=== PATIENT | female | born 1990 | race African-American/Black ===

== ENCOUNTER 2016-05-29 14:50 | Inpatient (IN) | payer MEDICAID ==
[2016-05-29] VITALS (7 sets, daily range): BP systolic 125–151; BP diastolic 71–82; PULSE 85–107; RESP 16–18; TEMP 97.8–98.8; O2SAT 95
[2016-05-29] MEDS ORDERED: CALNTAB (15:58)
[2016-05-29] MEDS ORDERED: SODIUM CHLORIDE 0.9% FLUSH 5 ML FLUSH IVF PRN (16:15)
[2016-05-29] MEDS ORDERED: BETAMETHASONE SOD PHOS/ACETATE SUSP 30 MG/5 ML VIAL IM SCH (16:15)
[2016-05-29] MEDS ORDERED: LACTATED RINGER'S 1000 ML INJ 1,000 ML IV SCH (16:15)
[2016-05-29] MEDS ORDERED: ONDANSETRON HCL 4 MG/2 ML VIAL IV PRN (16:15)
[2016-05-29] MEDS ORDERED: PENICILLIN G POTASSIUM INJ 5,000,000 UNITS in SODIUM CHLORIDE 0.9% INJ 100 ML IV ONE (16:15)
[2016-05-29] MEDS ORDERED: LACTATED RINGER'S 1000 ML INJ 500 ML IV ONE (16:20)
[2016-05-29] MEDS ORDERED: MAGNESIUM SULFATE 40 GM PREMIX 1,000 ML IV SCH (16:20)
[2016-05-29] MEDS ORDERED: MAGNESIUM SULFATE 4 GM PREMIX 100 ML IV ONE (16:30)
--- NOTE | 2016-05-29 16:48 | PD ---
HPI Chief Complaint spotting Date Seen: May 29, 2016 Travel History International Travel<30 Days: No Contact w/Intl Traveler<30Days: No Known Affected Area: No History of Present Illness HPI 26 yo with unsure FLAKO. Patient with no care. She had a visit at a crisis center in [place] and by a LMP FLAKO is 10-10-2016. This would make her about 20w6d today. Patient presents today with c/o spotting/light bleeding since yesterday. She had intercourse yesterday. She continued to have light bleeding overnight and this morning. By this afternoon she came to be evaluated. +FM. Denied LOF or discharge. No urinary complaints. No contractions or abdominal pain. She moved from [place] 3 months ago with her partner to help out his mother with her house. She had not established care. 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 Patient with history of 24 week after presentation for a "dilated cervix at 19 weeks". She was hospitalized for a month, given steroids. At 24 weeks she was fully dilated, AROM and had a . Baby was in the NICU for 6 months and has some residual respiratory and cognitive deficiencies. History Past Medical History Medical History: Denies Significant Hx Obstetric History Obstetric History SAB x 1 first trimester EAB x 1 D&C @ 24 weeks with painless dilation found at 19 weeks. Past Surgical History Narrative Surgical D&C Family History Family History: Negative Social History Alcohol Use: No Tobacco Use: No Substance Abuse: No Allergies-Medications (Allergen,Severity, Reaction): Coded Allergies: No Known Allergies (Unverified , 05/29/16) Home Meds Reported Medications Vitamin (Calna)1 Tab Tab 05/29/16 Review of Systems General / Constitutional: No: Fever, Chills Eyes: No: Blurred Vision, Visual changes HENT: No: Headaches, Lightheadedness Cardiovascular: No: Chest Pain or Discomfort, Palpitations Respiratory: No: Cough, Short of Breath Gastrointestinal: No: Nausea, Vomiting, Diarrhea, Abdominal Pain, Loss of Appetite Genitourinary: Vaginal Bleeding, No: Urgency, Frequency, Dysuria, Discharge Musculoskeletal: No: Limited ROM, Weakness Skin: No Rash, No Itching Neurologic: No: Weakness, Syncope Physical Exam Vital Signs Date Time Temp Pulse Resp B/P Pulse Ox O2 Delivery O2 Flow Rate FiO2 05/29/16 14:53 98.1 107 16 125/82 95 Narrative GENERAL: Well-nourished, well-developed patient. SKIN: Warm and dry. HEAD: Normocephalic and atraumatic. EYES: No scleral icterus. No injection or drainage. ENT: No nasal drainage noted. Mucous membranes pink. Airway patent. NECK: Supple, trachea midline. No JVD. CARDIOVASCULAR: Regular rate and rhythm without murmurs, gallops, or rubs. RESPIRATORY: Breath sounds equal bilaterally. No accessory muscle use. ABDOMEN/GI: Abdomen soft, non-tender, no rebound, no guarding Gravid, NT Fundal Height: U+2 GENITOURINARY: External Genitalia: intact and normal in appearance SSE: bulging membranes on speculum exam, intact membranes, scant blood SVE: intact membranes, no cervix palpated. no parts palpated TOCO: No UC noted or palpated FHT's: 150s EXTREMITIES: No cyanosis or edema. BACK: Nontender without obvious deformity. No CVA tenderness. NEUROLOGICAL: Awake and alert. Motor and sensory grossly within normal limits. Five out of 5 muscle strength in all muscle groups. Normal speech. Bedside US: Breech, normal amniotic fluid, posterior placenta, FL c/w 23w2d Data Data Vital Signs Reviewed: Yes Orders Vital Signs (Adult) .ON ADMISSION (05/29/16 15:58) ^ Labor Status (05/29/16 15:58) Urinalysis - C+S If Indicated (05/29/16 15:58) Gc And Chlamydia Pcr (05/29/16 15:58) Ob (2e) Additional Admit Info (05/29/16 16:08) Admit To Inpatient (05/29/16 ) Diet Npo (05/29/16 Dinner) ^ Heart (05/29/16 16:15) Activity Bed Rest (05/29/16 16:15) Complete Blood Count With Diff (05/29/16 16:15) Basic Metabolic Panel (Bmp) (05/29/16 16:15) Hepatic Functional Panel (05/29/16 16:15) Lactated Ringer's 1000 Ml Inj (Lr 1000 M (05/29/16 16:15) Sodium Chloride 0.9% Flush (Ns Flush) (05/29/16 21:00) Sodium Chloride 0.9% Flush (Ns Flush) (05/29/16 16:15) Ondansetron Inj (Zofran Inj) (05/29/16 16:15) Ob/Psych Drug Screen, Urine (05/29/16 16:15) Penicillin G Potassium Inj (Pfizerpen-G (05/29/16 16:15) Penicillin G Potassium Inj (Pfizerpen-G (05/29/16 21:00) Betamethasone Inj (Celestone Soluspan In (05/29/16 16:15) Rubella Immune Status (05/29/16 16:15) Rapid Plasma Regin (Rpr) W Ttr (05/29/16 16:15) No Care Spec Serology (05/29/16 16:15) Inpatient Certification (05/29/16 ) Intake + Output MACK.QSHIFT (05/29/16 16:20) Magnesium Sulfate 40 Gm Premix (Magnesiu (05/29/16 16:20) Magnesium Sulfate 4 Gm Premix (Magnesium (05/29/16 16:30) Lactated Ringer's 1000 Ml Inj (Lr 1000 M (05/29/16 16:20) Urinary Catheter Management MACK.Q8H (05/29/16 16:20) Scd Bilateral/Knee High MACK.QSHIFT (05/29/16 16:23) Group B Strep Pcr (Rapid) (05/29/16 16:23) Us Ob Pelvis >14 Wks Fetus (05/29/16 ) Labs Vital Signs Date Time Temp Pulse Resp B/P Pulse Ox O2 Delivery O2 Flow Rate FiO2 05/29/16 16:47 100 151/78 05/29/16 14:53 98.1 107 16 125/82 95 US: Diagnostics: EGA 21w6d Breech, posterior grade 1 placenta Normal fluid Limited anatomy due to lie Normal adnexa MDM Narrative Course / MDM 21 weeks Incompetent cervix Breech No care Hx of 24 week -initially given Betamethasone and Magnesium Sulfate initiated assuming 23+ weeks gestation. Placed in Trendelenburg, Leonila given. - labs obtained -US shows GA 21w6d, closer to patient's given EGA of 20w6d by her LMP. -NICU consultation obtained -Discussion of patient about pre-viability -At this time patient and partner desire supportive care only. -No monitoring, no for delivery. Starting to see some occasional contractions. Suspect within 24 hours with bulging membranes at introitus. Mary Crouch MD May 29, 2016 16:48
[2016-05-29 17:11] LABS: AUTOMATED NEUTROPHIL # 11.5 TH/MM3 (1.8-7.7); BASOPHIL % 0.2 % (0.0-2.0); EOSINOPHIL % 0.1 % (0.0-4.0); HEMATOCRIT 39.3 % (35.0-46.0); HEMO FLAGS DIFF FINAL; LYMPH % 11.5 % (9.0-44.0); LYMPHOCYTE # 1.6 TH/MM3 (1.0-4.8); MEAN CELL VOLUME 87.5 FL (80.0-100.0); MEAN CORPUSCULAR HEMOGLOBIN 30.3 PG (27.0-34.0); MEAN CORPUSCULAR HGB CONC 34.6 % (32.0-36.0); MONO % 6.8 % (0.0-8.0); NEUT % 81.4 % (16.0-70.0); PLATELET COUNT 334 TH/MM3 (150-450); RED BLOOD COUNT 4.49 MIL/MM3 (4.00-5.30); RED CELL DISTRIBUTION WIDTH 12.5 % (11.6-17.2); WHITE BLOOD COUNT 14.1 TH/MM3 (4.0-11.0)
[2016-05-29 17:17] LABS: BLOOD, URINE SMALL (NEG); GLUCOSE,URINE NEG (NEG); KETONE, URINE NEG (NEG); MUCUS URINE FEW /lpf (OCC); NITRITE,URINE NEG (NEG); SQUAMOUS EPITHELIAL CELL URINE 1 /hpf (0-5); URINE COLOR YELLOW (YELLW/STRAW)
[2016-05-29 17:18] LABS: COMMENT (UR) CULT NOT INDICATED; CULTURE IF INDICATED CULT NOT INDICATED
[2016-05-29 17:29] LABS: AMPHETAMINE, URINE NEG (NEG); BARBITURATES, URINE NEG (NEG); COCAINE, URINE NEG (NEG)
[2016-05-29 17:33] LABS: POTASSIUM 3.9 MEQ/L (3.5-5.1)
[2016-05-29 17:35] LABS: INDIRECT BILIRUBIN 0.2 MG/DL (0.0-0.8); TOTAL BILIRUBIN ADULT 0.3 MG/DL (0.2-1.0)
[2016-05-29 17:39] LABS: RUBELLA IGG ANTIBODY 11.3 IU/mL (10.0-500.0); RUBELLA STATUS IMMUNE (IMMUNE)
--- NOTE | 2016-05-29 18:40 | HHI.HP ---
History & Physical H&P HPI Chief Complaint spotting Date Seen: May 29, 2016 Travel History International Travel<30 Days: No Contact w/Intl Traveler<30Days: No Known Affected Area: No History of Present Illness HPI 26 yo with unsure FLAKO. Patient with no care. She had a visit at a crisis center in [place] and by a LMP FLAKO is 10-10-2016. This would make her about 20w6d today. Patient presents today with c/o spotting/light bleeding since yesterday. She had intercourse yesterday. She continued to have light bleeding overnight and this morning. By this afternoon she came to be evaluated. +FM. Denied LOF or discharge. No urinary complaints. No contractions or abdominal pain. She moved from [place] 3 months ago with her partner to help out his mother with her house. She had not established care. 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 Patient with history of 24 week after presentation for a "dilated cervix at 19 weeks". She was hospitalized for a month, given steroids. At 24 weeks she was fully dilated, AROM and had a . Baby was in the NICU for 6 months and has some residual respiratory and cognitive deficiencies. History (Limited) History Past Medical History Medical History: Denies Significant Hx Obstetric History Obstetric History SAB x 1 first trimester EAB x 1 D&C @ 24 weeks with painless dilation found at 19 weeks. Past Surgical History Narrative Surgical D&C Family History Family History: Negative Social History Alcohol Use: No Tobacco Use: No Substance Abuse: No Allergies-Medications Allergies-Medications (Allergen,Severity, Reaction): Coded Allergies: No Known Allergies (Unverified , 05/29/16) Home Meds Reported Medications Vitamin (Calna)1 Tab Tab 05/29/16 ROS Review of Systems General / Constitutional: No: Fever, Chills Eyes: No: Blurred Vision, Visual changes HENT: No: Headaches, Lightheadedness Cardiovascular: No: Chest Pain or Discomfort, Palpitations Respiratory: No: Cough, Short of Breath Gastrointestinal: No: Nausea, Vomiting, Diarrhea, Abdominal Pain, Loss of Appetite Genitourinary: Vaginal Bleeding, No: Urgency, Frequency, Dysuria, Discharge Musculoskeletal: No: Limited ROM, Weakness Skin: No Rash, No Itching Neurologic: No: Weakness, Syncope Physical Exam Physical Exam Vital Signs Date Time Temp Pulse Resp B/P Pulse Ox O2 Delivery O2 Flow Rate FiO2 05/29/16 14:53 98.1 107 16 125/82 95 Narrative GENERAL: Well-nourished, well-developed patient. SKIN: Warm and dry. HEAD: Normocephalic and atraumatic. EYES: No scleral icterus. No injection or drainage. ENT: No nasal drainage noted. Mucous membranes pink. Airway patent. NECK: Supple, trachea midline. No JVD. CARDIOVASCULAR: Regular rate and rhythm without murmurs, gallops, or rubs. RESPIRATORY: Breath sounds equal bilaterally. No accessory muscle use. ABDOMEN/GI: Abdomen soft, non-tender, no rebound, no guarding Gravid, NT Fundal Height: U+2 GENITOURINARY: External Genitalia: intact and normal in appearance SSE: bulging membranes on speculum exam, intact membranes, scant blood SVE: intact membranes, no cervix palpated. no parts palpated TOCO: No UC noted or palpated FHT's: 150s EXTREMITIES: No cyanosis or edema. BACK: Nontender without obvious deformity. No CVA tenderness. NEUROLOGICAL: Awake and alert. Motor and sensory grossly within normal limits. Five out of 5 muscle strength in all muscle groups. Normal speech. Bedside US: Breech, normal amniotic fluid, posterior placenta, FL c/w 23w2d Data Data Data Vital Signs Reviewed: Yes Orders Vital Signs (Adult) .ON ADMISSION (05/29/16 15:58) ^ Labor Status (05/29/16 15:58) Urinalysis - C+S If Indicated (05/29/16 15:58) Gc And Chlamydia Pcr (05/29/16 15:58) Ob (2e) Additional Admit Info (05/29/16 16:08) Admit To Inpatient (05/29/16 ) Diet Npo (05/29/16 Dinner) ^ Heart (05/29/16 16:15) Activity Bed Rest (05/29/16 16:15) Complete Blood Count With Diff (05/29/16 16:15) Basic Metabolic Panel (Bmp) (05/29/16 16:15) Hepatic Functional Panel (05/29/16 16:15) Lactated Ringer's 1000 Ml Inj (Lr 1000 M (05/29/16 16:15) Sodium Chloride 0.9% Flush (Ns Flush) (05/29/16 21:00) Sodium Chloride 0.9% Flush (Ns Flush) (05/29/16 16:15) Ondansetron Inj (Zofran Inj) (05/29/16 16:15) Ob/Psych Drug Screen, Urine (05/29/16 16:15) Penicillin G Potassium Inj (Pfizerpen-G (05/29/16 16:15) Penicillin G Potassium Inj (Pfizerpen-G (05/29/16 21:00) Betamethasone Inj (Celestone Soluspan In (05/29/16 16:15) Rubella Immune Status (05/29/16 16:15) Rapid Plasma Regin (Rpr) W Ttr (05/29/16 16:15) No Care Spec Serology (05/29/16 16:15) Inpatient Certification (05/29/16 ) Intake + Output MACK.QSHIFT (05/29/16 16:20) Magnesium Sulfate 40 Gm Premix (Magnesiu (05/29/16 16:20) Magnesium Sulfate 4 Gm Premix (Magnesium (05/29/16 16:30) Lactated Ringer's 1000 Ml Inj (Lr 1000 M (05/29/16 16:20) Urinary Catheter Management MACK.Q8H (05/29/16 16:20) Scd Bilateral/Knee High MACK.QSHIFT (05/29/16 16:23) Group B Strep Pcr (Rapid) (05/29/16 16:23) Us Ob Pelvis >14 Wks Fetus (05/29/16 ) Labs Vital Signs Date Time Temp Pulse Resp B/P Pulse Ox O2 Delivery O2 Flow Rate FiO2 05/29/16 16:47 100 151/78 05/29/16 14:53 98.1 107 16 125/82 95 US: Diagnostics: EGA 21w6d Breech, posterior grade 1 placenta Normal fluid Limited anatomy due to lie Normal adnexa MDM MDM Narrative Course / MDM 21 weeks Incompetent cervix Breech No care Hx of 24 week -initially given Betamethasone and Magnesium Sulfate initiated assuming 23+ weeks gestation. Placed in Trendelenburg, Leonila given. - labs obtained -US shows GA 21w6d, closer to patient's given EGA of 20w6d by her LMP. -NICU consultation obtained -Discussion of patient about pre-viability -At this time patient and partner desire supportive care only. -No monitoring, no for delivery. Starting to see some occasional contractions. Suspect within 24 hours with bulging membranes at introitus. Mary Crouch MD May 29, 2016 16:48 Mary Crouch MD May 29, 2016 18:40
[2016-05-29 19:59] LABS: CHLAMYDIA PCR NOT DETECTED (NOT DETECT); NEISSERIA PCR NOT DETECTED (NOT DETECT)
[2016-05-29] MEDS ORDERED: PENICILLIN G POTASSIUM INJ 2,500,000 UNITS in SODIUM CHLORIDE 0.9% INJ 100 ML IV SCH (21:00)
[2016-05-29] MEDS ORDERED: SODIUM CHLORIDE 0.9% FLUSH 5 ML FLUSH IVF SCH (21:00)
--- NOTE | 2016-05-29 22:49 | PD.LABORPN ---
Subjective Subjective Patient reports mild cramping about every 5 min. Some back pain. Declines need for pain medication. Denies LOF. No vaginal pressure. Objective Vital Signs Vital Signs Date Time Temp Pulse Resp B/P Pulse Ox O2 Delivery O2 Flow Rate FiO2 05/29/16 21:15 18 05/29/16 21:14 103 127/71 05/29/16 18:33 97.8 18 05/29/16 18:32 85 131/74 05/29/16 16:47 100 151/78 05/29/16 14:53 98.1 107 16 125/82 95 Objective TOCO: only occasional UC noted. Assessment/Plan Assessment and Plan 21 weeks Incompetent cervix with complete dilation and bulging membranes RN from NICU and myself again spoke with the patient and her partner, patient had questions about what to expect. Patient understands this is previable and @ 20-21 weeks there is no chance of survival. Patient at this time want supportive care. She understands why magnesium sulfate had been originally initiated and then discontinued. No monitoring at this time and no for delivery. Fetus is breech and expectation is a vaginal delivery. Mary Crouch MD May 29, 2016 22:49
[2016-05-30] VITALS (35 sets, daily range): BP systolic 61–144; BP diastolic 46–90; PULSE 77–143; RESP 18–20; TEMP 97.9–98.8
[2016-05-30] MEDS ORDERED: NS 500 ML BOLUS IV PRN (02:15)
[2016-05-30] MEDS ORDERED: LIDOCAINE HCL 1% 50 ML VIAL INFIL PRN (02:15)
[2016-05-30] MEDS ORDERED: MINERAL OIL 10 ML VIAL TOP PRN (02:15)
[2016-05-30] MEDS ORDERED: NS 1000 ML IV PRN (02:15)
[2016-05-30] MEDS ORDERED: LACTATED RINGER'S 1000 ML IV SCH (02:15)
[2016-05-30] MEDS ORDERED: CITRIC ACID-SODIUM CITRATE LIQ 30 ML UDC PO SCH (02:15)
[2016-05-30] MEDS ORDERED: LIDOCAINE HCL 1% 50 ML VIAL I-DERMAL PRN (02:15)
[2016-05-30] MEDS ORDERED: OXYTOCIN 30 UNITS 500ML PREMIX IV ONE (02:15)
[2016-05-30] MEDS ORDERED: ONDANSETRON HCL 4 MG/2 ML VIAL IV PRN (02:15)
[2016-05-30] MEDS ORDERED: LACTATED RINGER'S 1000 ML BOLUS IV PRN (02:15)
--- NOTE | 2016-05-30 04:57 | PD.LABORPN ---
Subjective Subjective Feeling increased pain/contractions. No change in vaginal pressure or ROM. Objective Vital Signs Vital Signs Date Time Temp Pulse Resp B/P Pulse Ox O2 Delivery O2 Flow Rate FiO2 05/30/16 04:15 18 05/30/16 04:00 92 123/71 05/30/16 03:04 18 05/30/16 03:01 83 119/72 05/30/16 02:15 97.9 05/30/16 02:11 18 05/30/16 02:00 93 112/54 05/30/16 01:14 18 05/30/16 01:00 92 119/63 05/30/16 00:15 18 05/30/16 00:00 109/60 05/30/16 00:00 92 05/29/16 23:00 94 127/72 05/29/16 23:00 98.8 18 05/29/16 21:15 18 05/29/16 21:14 103 127/71 Objective Pelvic Exam: SVE: deferred until vaginal pressure TOCO: UC q 3-5 min Assessment/Plan Assessment and Plan 21-22 weeks Incompetent cervix with bulging membranes Laboring with regular UC At this time desire epidural for anesthesia Patient is anxious. All questions answered for now. Mary Crouch MD May 30, 2016 04:57
[2016-05-30] MEDS ORDERED: fentaNYL 2MCG-BUPIV 0.125% INJ 100 ML ONE (05:02)
[2016-05-30] MEDS ORDERED: ePHEDrine/NS 25 MG/5 ML SYR ONE (06:10)
[2016-05-30] MEDS ORDERED: IBUPROFEN 600 MG TAB PO PRN (07:00)
[2016-05-30] MEDS ORDERED: ALUMINUM/MAGNESIUM/SIMETH 30 ML CUP PO PRN (07:00)
[2016-05-30] MEDS ORDERED: DOCUSATE SODIUM 50 MG/SENNA 8.6 MG TAB PO PRN (07:00)
[2016-05-30] MEDS ORDERED: WITCH HAZEL 50%/GLYCERIN 12.5% 40 PAD JAR TOPICAL PRN (07:00)
[2016-05-30] MEDS ORDERED: BENZOCAINE 20% TOPICAL SPRAY 60 ML CAN TOPICAL PRN (07:00)
[2016-05-30] MEDS ORDERED: ONDANSETRON ODT 4 MG TAB PO PRN (07:00)
[2016-05-30] MEDS ORDERED: ACETAMINOPHEN 325 MG TAB PO PRN (07:00)
[2016-05-30] MEDS ORDERED: SODIUM CHLORIDE 0.9% FLUSH 5 ML FLUSH IV PRN (07:00)
--- NOTE | 2016-05-30 07:04 | PD.OB.DELI ---
Delivery Date: May 30, 2016 Anesthesia: Epidural Episiotomy: None Vaginal Delivery: Normal Presentation: Breech Nuchal Cord: None : Male One Minute : 0 Five Minute : 0 Weight: 448g Placenta: Spontaneous delivery, Intact Laceration: No lacerations Additional Information 26 yo @ 20-21 weeks with incompetent cervix. No care and hx of 24 week delivery after dilation @ 19 weeks. Patient presented this with bulging membranes and painless dilation, consistent with incompetent cervix. Spontaneous labor ensued after admission. Received epidural for anesthesia. en caul with placenta attached and intact. No movement. EBL <100ml. No lacerations. Mary Crouch MD May 30, 2016 07:04
[2016-05-30] MEDS ORDERED: SODIUM CHLORIDE 0.9% FLUSH 5 ML FLUSH IV SCH (09:00)
[2016-05-30 10:04] LABS: RAPID PLASMA REAGIN SCREEN NON-REACTIVE (NON-REACTVE)
[2016-05-30] MEDS ORDERED: DIPHTH/TETANUS/ACEL PERTUSSIS (BOOSTER) 0.5 ML VIAL/PFS IM ONE (16:00)
[2016-05-30] MEDS ORDERED: MEASLES, MUMPS, RUBELLA VACCINE 0.5 ML VIAL SQ ONE (16:00)
[2016-05-30] MEDS ORDERED: IBUP-232 PO (16:47)
--- NOTE | 2016-05-30 16:48 | HHI.DCPOC ---
Discharge Care Plan Diagnosis: (1) Intrauterine in , antepartum Goals to Promote Your Health * To prevent worsening of your condition and complications * To maintain your health at the optimal level Directions to Meet Your Goals Take your medications as prescribed Follow your dietary instruction Follow activity as directed Keep your appointments as scheduled Take your immunizations and boosters as scheduled If your symptoms worsen call your PCP, if no PCP go to Urgent Care Center or Emergency Room Smoking is Dangerous to Your Health. Avoid second hand smoke Call the 24-hour hour crisis hotline for domestic abuse at Roddy Zaragoza MD R2 May 30, 2016 16:48 Roddy Zaragoza MD R2 May 30, 2016 16:48
[2016-06-06 10:28] LABS: BATH SALTS (MDPV) UR NEG (NEG); ECSTASY (MDMA) UR NEG (NEG); HEROIN (6-ACETYLMORPHINE) UR NEG (NEG); K2 SPICE UR NEG (NEG); OBMETHADONE UR NEG (NEG); OXYCODONE (PERCODAN) NEG (NEG); PHENCYCLIDINE URINE NEG (NEG)
--- NOTE | 2016-06-24 08:57 | HHI.FPPN ---
Addendum to progress note ADDENDUM Reason for addendum: Additonal documentation Additional information Addendum written on 06/24/16 at 8:56 AM Patient is a 26 year old that presented as a with no care. She presented at about 20/6 weeks gestation on 05/29/16. She presented with complaints of bleeding. She was determined to have incompetent cervix with complete dilation and bulging membranes. The was deemed previable at about 20 to 21 weeks gestation with no chance of survival for the fetus. Ultrasound showed an estimated gestational age of 21/6. Patient and her partner desired supportive care only. She delivered via spontaneous vaginal deliver with intact placenta on 05/30/16. She was given epidural for pain management. She delivered a male with apgars of 0/0 with no movements. weight was 448. There were no lacerations. Estimated blood loss was less than 100 mls. There were no lacerations. The patient tolerated the delivery well. Pain was well controlled. Vital signs were stable. Lochia was the amount of a menstrual period. She was able to ambulate without difficulty. The uterus was firm. Emotional support was given. She was advised to follow up with her doctor within the week. She was advised to monitor the amount of vaginal bleeding and report immediately if more than a menstrual period. She was advised to report any chest pain or shortness of breath. There were no post-delivery complications. She was understandably eager to go home after the delivery, and was subsequently discharged with instructions for follow up. Roddy Zaragoza MD R2 Jun 24, 2016 08:57
== END 2016-05-30 18:08 | disposition home or self-care (01) | DRG 775 ==
LOC: HOBED 14:50 → H2EB 16:09
PROVIDERS: ADMIT Obstetrics & Gynecology; ATTEND Obstetrics & Gynecology
PROC: 10E0XZZ Delivery of Products of Conception, External Approach (ICD-10-PCS; principal; 2016-05-30)
PROC: 3E0S3CZ (ICD-10-PCS; 2016-05-30)
PROC: 00HU33Z Insertion of Infusion Device into Spinal Canal, Percutaneous Approach (ICD-10-PCS; 2016-05-30)
DX: O34.32 Maternal care for cervical incompetence, second trimester (principal); O32.1XX0 Maternal care for breech presentation, not applicable or unspecified; O09.32 Supervision of pregnancy with insufficient antenatal care, second trimester; Z3A.21 21 weeks gestation of pregnancy; Z37.1 Single stillbirth
CPT/HCPCS: 76805; 80048; 80076; 80307; 81001; 85025; 86592; 86703; 86762; 86900; 86901; 87491; 87591; 99285; G0481; J0702; J2405; J2540; J3010; J3475; J7120